=== PATIENT | female | born 1980 | race Caucasian/White ===

== ENCOUNTER 2019-03-24 23:50 | Emergency (ER) | payer BC ==
[~2019-03-24] VITALS: Ht 162.6 cm; Wt 54.4 kg
[2019-03-24 23:56] VITALS: BP_SYST 127
--- NOTE | 2019-03-25 | NUR ---
Patient triaged and placed in waiting room. VSS and patient appears in no acute distress at this time. Accompanied by self, awaiting available bed, and MD notified of need for MSE.
--- NOTE | 2019-03-25 00:05 | NUR ---
Pt AAOx4 ambulated into ED c/o 04/18 dysuria, oliguria, hematuria, and urgency x a few days. Pt reports she has recurrent UTI's and has had "all different kinds of antibiotics." Skin pink dry and warm, breathing even and unlabored. No other injuries/complaints per pt/noted. Will continue to monitor.
[2019-03-25 00:25] LABS: BILIRUBIN,URINE NEGATIVE (NEGATIVE); BLOOD, URINE 3+ (NEGATIVE); CLARITY/URINE HAZY (CLEAR); COLOR,URINE ORANGE (YELLOW); GLUCOSE,URINE TRACE (NEGATIVE); KETONES,URINE TRACE (NEGATIVE); LEUKOCYTE ESTERASE ,URINE 2+ (NEGATIVE); NITRITE, URINE POSITIVE (NEGATIVE); PROTEIN URINE 3+ (NEGATIVE)
[2019-03-25 00:31] LABS: BACTERIA,URINE MANY /HPF (None Seen); MUCUS,URINE 2+ /LPF (None Seen); RBC,URINE >100 /HPF (0-3); WBC,URINE >100 /HPF (0-3)
--- NOTE | 2019-03-25 00:44 | NUR ---
ER at bedside examining patient.
[2019-03-25] MEDS ORDERED: cefTRIAXone 1 GM VIAL IM ONE (01:00)
[2019-03-25] MEDS ORDERED: PHENAZOPYRIDINE HCL 100 MG TABLET PO ONE (01:00)
[2019-03-25] MEDS ORDERED: LIDOCAINE 1%, 20 ML MDV 0 ML ONE (01:10)
[2019-03-25 01:13] VITALS: BP_SYST 127
--- NOTE | 2019-03-25 01:13 | NUR ---
Patient given written and verbal discharge instructions and verbalizes understanding. ER MD discussed with patient the results and treatment provided. Patient in stable condition. ID arm band removed. Rx of Macrobid and Pyridium given. Patient educated on pain management and to follow up with PMD in 2-3 days. Pain Scale 0/10 Opportunity for questions provided and answered. Medication side effect fact sheet provided.
== END 2019-03-25 01:13 | disposition home or self-care (01) ==
LOC: SED 23:50
DX: N39.0 Urinary tract infection, site not specified (principal)
CPT/HCPCS: 81000; 81025; 87086; 96372; 99283; J0696; 87186-TC; J2001